=== PATIENT | male | born 1955 | race Caucasian/White ===

== ENCOUNTER 2020-12-10 10:07 | Emergency (ER) | payer OTHER ==
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
== END 2020-12-10 11:30 | disposition home or self-care (01) ==
LOC: VM.ED 10:07
DX: S50.11XA Contusion of right forearm, initial encounter (principal); S30.811A Abrasion of abdominal wall, initial encounter; I10 Essential (primary) hypertension; Z88.2 Allergy status to sulfonamides; V47.5XXA Car driver injured in collision with fixed or stationary object in traffic accident, initial encounter; Y92.410 Unspecified street and highway as the place of occurrence of the external cause
CPT/HCPCS: 71045; 73090-RT; 99283; 99284-25